=== PATIENT | male | born 1990 | race Caucasian/White ===

== ENCOUNTER 2018-04-26 23:12 | Emergency (ER) | payer SELFPAY ==
[~2018-04-26] VITALS: Ht 177.8 cm; Wt 82.0 kg
[2018-04-27] MEDS ORDERED: KETOROLAC 30MG/ML VIAL IV STA (00:47)
[2018-04-27] MEDS ORDERED: SODIUM CHLORIDE 0.9% 1,000 ML IV ONE (00:47)
[2018-04-27] MEDS ORDERED: ACETAMINOPHEN 325MG TABLET PO STA (00:47)
[2018-04-27 01:19] LABS: BASOPHILS % 0.4 % (0.0-2.0); HEMATOCRIT. 43.1 % (42.0-52.0); HEMOGLOBIN. 14.9 g/dL (14.0-18.0); LYMPHOCYTES % 16.1 % (20.0-50.0); MEAN CORPUSCULAR HEMOGLOBIN 32.3 pg (28.0-32.0); MEAN CORPUSCULAR VOLUME 93.5 fL (80.0-94.0); MEAN PLATELET VOLUME 8.7 fl (7.4-10.4); MONOCYTES % 11.4 % (2.0-8.0); NEUTROPHILS % 72.1 % (40.0-76.0); PLATELET 152 x1000/uL (130-400); RED BLOOD CELL COUNT 4.61 mill/uL (4.7-6.1)
[2018-04-27 01:24] VITALS: BP 107/81
[2018-04-27 01:28] LABS: CHLORIDE 103 mEq/L (98-107)
== END 2018-04-27 02:19 | disposition left against medical advice (07) ==
LOC: ER 23:12
DX: J18.9 Pneumonia, unspecified organism (principal); R07.89 Other chest pain
CPT/HCPCS: 36415; 71045; 80053; 85025; 93005; 96374; 99284; J1885; J7030